=== PATIENT | male | born 1995 | race Caucasian/White ===

== ENCOUNTER 2018-12-05 16:13 | Emergency (ER) | payer OTHER ==
[~2018-12-05] VITALS: Ht 182.9 cm; Wt 88.6 kg
[2018-12-05 16:14] VITALS: BP 148/94
[2018-12-05] MEDS ORDERED: NON-325T5 PO (16:21)
[2018-12-05] MEDS ORDERED: NORT50CA PO (16:21)
--- NOTE | 2018-12-05 16:56 | REP ---
Right wrist four views History: Pain The patient is status post ORIF of a fracture of the distal radius. Metal hardware is present. There is no acute fracture or dislocation. The joint spaces are normal in appearance. Impression: There is no acute fracture or dislocation. Electronically Signed by Basilio Quispe MD 12/05/2018 04:48 P
== END 2018-12-05 17:18 | disposition home or self-care (01) ==
LOC: M ED 16:13
DX: M25.531 Pain in right wrist (principal); Z98.890 Other specified postprocedural states; Z87.820 Personal history of traumatic brain injury; Z88.0 Allergy status to penicillin; Z79.899 Other long term (current) drug therapy